=== PATIENT | male | born 2000 | race African-American/Black ===

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

== ENCOUNTER 2025-06-30 20:17 | Emergency (ER) | payer OTHER, SELFPAY ==
[2025-06-30 21:08] LABS: #Basophils 0.03 10x3/uL (0.0-0.2); #Eosinophils 0.03 10x3/uL (0.0-0.7); #Monocytes 0.47 10x3/uL (0.11-0.59); #Neutrophils 1.77 10x3/uL (1.40-6.50); %Basophils 0.7 % (0.0-1.0); %Eosinophils 0.7 % (0.0-10.0); %Lymphocytes 48.6 % (21.0-51.0); %Monocytes 10.5 % (0.0-10.0); %Neutrophils 39.3 % (42.0-75.0); Hematocrit 43.7 % (42.0-52.0); Hemoglobin 14.8 g/dL (14.0-18.0); Mean Corpuscular Hemoglobin 30.5 pg (27.0-31.0); Mean Corpuscular Volume 90.1 fL (78.0-98.0); Platelet Count 229 10x3/uL (130-400); Red Blood Cell (RBC) Count 4.85 mill/uL (4.70-6.10); White Blood Cell (WBC) Count 4.49 10x3/uL (4.8-10.8)
[2025-06-30 21:23] LABS: ALT (SGPT) 12 U/L (Less than 45); AST (SGOT) 23 U/L (11-34); Albumin 4.7 g/dL (3.1-4.5); Alkaline Phosphatase 51 U/L (40-110); Anion Gap 16 mmol/L (10-20); BUN (Urea Nitrogen) 12 mg/dL (8.9-20.6); Bilirubin, Total 0.5 mg/dL (0.3-1.2); Calc. Creatinine Clearance 0 mL/min (70-130); Calcium 10.0 mg/dL (7.8-10.44); Carbon Dioxide 23 mmol/L (22-29); Chloride 103 mmol/L (98-107); Globulin 3.4 g/dL (2.4-3.5); Glucose 83 mg/dL (70-105); Lipase 21 U/L (8-78); Potassium 4.7 mmol/L (3.5-5.1); Sodium 137 mmol/L (136-145)
[2025-06-30 21:40] LABS: Bacteria/HPF None Seen HPF (None Seen); CAUTI Indications for Culture Pelvic or flank pain; Glucose, Urine (Dipstick) Normal (Negative); Leukocyte 75 Leu/uL (Negative); Protein, Urine (Dipstick) Negative (Neg-Trace); RBC/HPF 0-3 HPF (0-3); Specific Gravity, Urine 1.013 (1.002-1.036); WBC/HPF 0-3 HPF (0-3)
[2025-06-30 21:43] LABS: Urine Culture Reflex No No
== END 2025-06-30 21:58 | disposition home or self-care (01) ==
LOC: ERS 20:17
DX: R10.9 Unspecified abdominal pain (principal); R11.2 Nausea with vomiting, unspecified
CPT/HCPCS: 36415; 80053; 81001; 83690; 85025; 99284

== ENCOUNTER 2025-07-11 16:09 | Emergency (ER) | payer SELFPAY ==
[2025-07-11] MEDS ORDERED: HYDROcodone/Acetaminophen 10/325 mg Tablet ONE (17:53)
== END 2025-07-11 17:58 | disposition home or self-care (01) ==
LOC: ERS 16:09
DX: K04.7 Periapical abscess without sinus (principal); K02.9 Dental caries, unspecified
CPT/HCPCS: 99282